=== PATIENT | female | born 1940 | race Asian ===

== ENCOUNTER 2017-07-18 18:56 | Emergency (ER) | payer OTHER ==
[~2017-07-18] VITALS: Ht 160 cm; Wt 63.0 kg
[2017-07-18 19:00] VITALS: BP 166/84
== END 2017-07-19 01:40 | disposition left against medical advice (07) ==
LOC: ER 19:17
DX: M79.602 Pain in left arm (principal); Z53.21 Procedure and treatment not carried out due to patient leaving prior to being seen by health care provider